=== PATIENT | male | born 1960 | race Caucasian/White ===

== ENCOUNTER 2017-06-10 11:15 | Emergency (ER) | payer MEDICAID, OTHER ==
[~2017-06-10] VITALS: Ht 177.8 cm; Wt 75.0 kg
[2017-06-10] MEDS ORDERED: MAGNESIUM/ALUMINUM HYDROXIDE/SIMETHICONE 30ML UDC PO STA (11:41)
[2017-06-10] MEDS ORDERED: FAMOTIDINE 20MG TABLET PO STA (11:41)
[2017-06-10] MEDS ORDERED: IBUPROFEN 800MG TABLET PO ONE (11:45)
[2017-06-10 12:01] LABS: HEMATOCRIT. 39.9 % (42.0-52.0); HEMOGLOBIN. 13.6 g/dL (14.0-18.0); MEAN CORPUSCULAR HEMOGLOBIN 30.2 pg (28.0-32.0); MEAN CORPUSCULAR VOLUME 88.6 fL (80.0-94.0); MEAN PLATELET VOLUME 7.1 fl (7.4-10.4); PLATELET 176 x1000/uL (130-400); RED BLOOD CELL COUNT 4.51 mill/uL (4.7-6.1); RED CELL DISTRIBUTION WIDTH 13.3 % (11.6-14.6)
[2017-06-10 12:18] LABS: PARTIAL THROMBOPLASTIN TIME 26.9 sec (23.4-31.0); PROTHROMBIN TIME 10.9 sec (9.4-11.6)
[2017-06-10 12:19] LABS: CHLORIDE 104 mEq/L (98-107)
[2017-06-10 12:23] LABS: PLATELET ESTIMATE NORMAL
[2017-06-10] MEDS ORDERED: CEPHALEXIN 500MG CAPSULE PO ONE (13:15)
[2017-06-10] MEDS ORDERED: SULFAMETHOXAZOLE/TRIMETHOPRIM 800/160MG TABLET PO ONE (13:15)
[2017-06-10 14:53] VITALS: BP 116/68
== END 2017-06-10 14:53 | disposition home or self-care (01) ==
LOC: ER 11:32
DX: R07.89 Other chest pain (principal); L03.115 Cellulitis of right lower limb; F17.200 Nicotine dependence, unspecified, uncomplicated; Z59.0 Homelessness
CPT/HCPCS: 36415; 71045; 73630; 80053; 83690; 83880; 84443; 84484; 85025; 85610; 85730; 93005; 99285